=== PATIENT | male | born 1985 | race Caucasian/White ===

== ENCOUNTER → 2018-12-29 | Outpatient (CLI) | payer BC ==
[~2018-12-29] MED LIST: DEXL60CA6 PO; DIA5 PO; LOR5 PO; LOR5/325 PO; NO MEDS; NO ROUTINE MEDS; OMEP-137 PO
[2018-12-29 15:59] LABS: PLATELET COUNT, AUTOMATED 243 K/uL (150-450)
== END ==
LOC: LAB 15:30
PROVIDERS: ATTEND Internal Medicine
DX: K21.9 Gastro-esophageal reflux disease without esophagitis (principal)
CPT/HCPCS: 36415; 81001; 82040; 82247; 82310; 82374; 82435; 82565; 82947; 84075; 84132; 84155; 84295; 84443; 84450; 84460; 84520; 85025; 86677

== ENCOUNTER → 2019-01-04 | Outpatient (CLI) | payer BC ==
[~2019-01-04] MED LIST changes: +BARIUM SULFATE 176 GM BTL PO ONE; +BARIUM SULFATE 340 GM POWD ONE
--- NOTE | 2019-01-04 13:36 | RADIOLOGY IMAGING REPORT ---
FACILITY: [facility] PATIENT NAME: Wil Zaidi : 1985 MR: [id number] V: [id number] EXAM DATE: ORDERING PHYSICIAN: JONEL WASSERMAN TECHNOLOGIST: Location: [facility] Patient: Wil Zaidi : 1985 Visit/Account:[id number] Date of Sevice: 01/04/2019 EXAMINATION: Double contrast upper GI 01/04/2019 10:00 AM HISTORY: GERD COMPARISON: None FLUOROSCOPY TIME: 1.0 minutes DOSE: DAP was 652.51 uGy/m2 FINDINGS: Appeals Analyst images unremarkable. The patient ingested gas crystals followed by thick barium upr ight and thin barium in the prone SUMNER position. Primary esophageal peristalsis is unremarkable. Eso phagus distends well without focal mass or stricture. No mucosal erosion or ulceration demonstrated. With the patient supine there is a small sliding hiatal hernia. Mild tertiary esophageal spasm is noted along the esophagus at this point. Gastroesophageal reflux was provoked during the exam back u p to the level of the thoracic inlet. The stomach distends normally. Rugal folds are not thickened. Stomach empties without delay. Duode nal bulb and C-loop are unremarkable in appearance. At the completion of the study the patient ingested a 13 mm barium tablet without difficulty and pass ed into the stomach without delay. IMPRESSION: 1. Small sliding hiatal hernia with positive gastroesophageal reflux and some esophageal spasm which likely reflects irritation. 2. Otherwise unremarkable study. Report Dictated By: Douglas Moreira MD at 01/04/2019 1:25 PM Report E-Signed By: Douglas Moreira MD at 01/04/2019 1:28 PM WSN:[id number]
== END ==
LOC: RAD 12-31 07:28
PROVIDERS: ATTEND Internal Medicine
DX: K21.9 Gastro-esophageal reflux disease without esophagitis (principal); K44.9 Diaphragmatic hernia without obstruction or gangrene
CPT/HCPCS: 74246